=== PATIENT | female | born 1990 | race Caucasian/White ===

== ENCOUNTER → 2017-02-01 | Outpatient (CLI) | payer OTHER ==
--- NOTE | 2017-02-01 15:53 | CR ---
EXAMINATION: Two-view chest (PA and Lateral views). HISTORY: Cough. FINDINGS: The trachea is midline. The cardiomediastinal silhouette is within normal limits. No pulmonary infil trates, effusions or pneumothorax. Osseous structures appear unremarkable. IMPRESSION: No acute cardiopulmonary process.
== END ==
LOC: MW.CHFP 15:07
PROVIDERS: ATTEND Family Medicine
DX: R05 Cough (principal)
CPT/HCPCS: 36415; 71020; 71020-26; 85027

== ENCOUNTER 2018-03-18 11:48 | Emergency (ER) | payer OTHER ==
--- NOTE | 2018-03-18 12:08 | EDM.PDOC ---
ED HPI GENERAL MEDICAL PROBLEM - General Chief Complaint: Abdominal Pain Stated Complaint: ABDOMINAL PAIN Time Seen by Provider: 03/18/18 12:00 - History of Present Illness INITIAL COMMENTS - FREE TEXT/NARRATIVE: HISTORY AND PHYSICAL: History of present illness: The patient is a 27-year-old female who is scheduled for same-day surgery tomorrow for colonoscopy and presents with abdominal pain that started after she started her bowel prep. The patient took the dose of Dulcolax and started having severe abdominal cramping and had a bowel movement in the waiting room and is now significantly better. She has not started the MiraLAX and Gatorade solution. She had one episode of vomiting which she feels was secondary to the pain. She currently is much improved per her significant other but they're concerned about continuing that. She has no fevers chills chest pain or shortness of breath and denies . Review of systems: As per history of present illness and below otherwise all systems reviewed and negative. Past medical history: As per history of present illness and as reviewed below otherwise noncontributory. Surgical history: As per history of present illness and as reviewed below otherwise noncontributory. Social history: No reported history of drug or alcohol abuse. Family history: As per history of present illness and as reviewed below otherwise noncontributory. Physical exam: General: Well-developed well-nourished overweight female who is nontoxic and vital signs were noted by me HEENT: Atraumatic, normocephalic, negative for conjunctival pallor or scleral icterus, mucous membranes moist, throat clear, neck supple, nontender, trachea midline. Lungs: Clear to auscultation, breath sounds equal bilaterally, chest nontender. Heart: S1S2, regular rate and rhythm no overt murmurs Abdomen: Soft, nondistended, nontender. Bowel sounds are normoactive . Pelvis: Stable nontender. Genitourinary: Deferred. Rectal: Deferred. Extremities: Atraumatic, negative for cords or calf pain. Neurovascular unremarkable. Neuro: Awake, alert, oriented. Cranial nerves II through XII unremarkable. Cerebellum unremarkable. Motor and sensory unremarkable throughout. Exam nonfocal. Diagnostics: [] Therapeutics: Case was discussed with Dr. Bacon so she was aware of today's events at 1220. She agrees with giving her some Zofran and to continue the bowel prep. Patient was made aware of this conversation. Impression: Abdominal pain and cramping with colonoscopy bowel prep Definitive disposition and diagnosis as appropriate pending reevaluation and review of above. Abdominal Pain Score (Numeric/FACES): 3 - Related Data Allergies Allergy/AdvReac Type Severity Reaction Status Date / Time cefixime [From Suprax] Allergy Hives Verified 03/18/18 12:14 ciprofloxacin Allergy Hallucinati Verified 03/18/18 12:14 ons Penicillins Allergy Hives Verified 03/18/18 12:14 Sulfa (Sulfonamide Allergy Hives Verified 03/18/18 12:14 Antibiotics) Home Meds: Home Meds Levonorgestrel-Ethin Estradiol [Aubra-28 Tablet] 1 tab PO DAILY 03/14/18 [ History] Past Medical History HEENT History: Reports: Other (See Below) Other HEENT History: wears glasses/contacts Gastrointestinal History: Reports: Chronic Constipation, Hemorrhoids Musculoskeletal History: Reports: Fracture Other Musculoskeletal History: hx fx ribs and finger Neurological History: Reports: Concussion Endocrine/Metabolic History: Reports: Obesity/BMI 30+ - Past Surgical History Head Surgeries/Procedures: Reports: None HEENT Surgical History: Reports: Myringotomy w Tube(s) GI Surgical History: Reports: Colonoscopy ED ROS GENERAL - Review of Systems Review Of Systems: ROS reveals no pertinent complaints other than HPI. ED EXAM, GENERAL - Physical Exam Exam: See Below (see dictation) Departure - Departure Time of Disposition: 12:22 Disposition: Home, Self-Care 01 Condition: Good Clinical Impression: Abdominal pain Qualifiers: Abdominal location: generalized Qualified Code(s): R10.84 - Generalized abdominal pain - Discharge Information Referrals: Jolene Barraza MD [Primary Care Provider] - Forms: ED Department Discharge Additional Instructions: The following information is given to patients seen in the emergency department who are being discharged to home. This information is to outline your options for follow-up care. We provide all patients seen in our emergency department with a follow-up referral. The need for follow-up, as well as the timing and circumstances, are variable depending upon the specifics of your emergency department visit. If you don't have a primary care physician on staff, we will provide you with a referral. We always advise you to contact your personal physician following an emergency department visit to inform them of the circumstance of the visit and for follow-up with them and/or the need for any referrals to a consulting specialist. The emergency department will also refer you to a specialist when appropriate. This referral assures that you have the opportunity for followup care with a specialist. All of these measure are taken in an effort to provide you with optimal care, which includes your followup. Under all circumstances we always encourage you to contact your private physician who remains a resource for coordinating your care. When calling for followup care, please make the office aware that this follow-up is from your recent emergency room visit. If for any reason you are refused follow-up, please contact the [facility] emergency department at and ask to speak to the emergency department charge nurse. [facility] Professional Building [address] [place] [phone] Please continue with the bowel prep and perform as much of it as you can. Expect some cramping and use Zofran for any nausea or vomiting. Please keep your appointment tomorrow in same-day surgery. Push hydration and return to ER as needed and as discussed
[2018-03-18 12:28] VITALS: BP 142/94
== END 2018-03-18 12:34 | disposition home or self-care (01) ==
LOC: MW.ED 11:48
DX: R10.84 Generalized abdominal pain (principal); Z88.0 Allergy status to penicillin; Z88.2 Allergy status to sulfonamides
CPT/HCPCS: 99283

== ENCOUNTER 2018-03-19 11:04 | Day surgery (SDC) | payer OTHER ==
[~2018-03-19 11:04] MED LIST: Lactated Ringers 1,000 ML IV SCH; Sodium Chloride 0.9% 10 ML Syringe FLUSH PRN; Sodium Chloride 0.9% 2.5 ML Syringe FLUSH PRN
[2018-03-19] MEDS ORDERED: fentaNYL 100 MCG/2 ML SDV ONE (11:36)
[2018-03-19] MEDS ORDERED: Midazolam 1 MG/ML 2 ML SDV ONE (11:36)
[2018-03-19] MEDS ORDERED: Propofol 200 MG/20 ML SDV ONE (11:36)
[2018-03-19] MEDS ORDERED: Lidocaine 2% 5 ML SDV ONE (11:36)
--- NOTE | 2018-03-19 11:37 | PCM.PREANE ---
Preanesthetic Assessment - Anesthesia/Transfusion/Family Hx Anesthesia History: Prior Anesthesia Without Reaction Family History of Anesthesia Reaction: No Transfusion History: No Prior Transfusion(s) Intubation History: Unknown - Review of Systems General: No Symptoms Pulmonary: No Symptoms Cardiovascular: No Symptoms Gastrointestinal: Abdominal Pain (rectal pain) Neurological: No Symptoms Other: Reports: None - Physical Assessment Height: 1.63 m Weight: 103.873 kg ASA Class: 2 Mental Status: Alert & Oriented x3 Airway Class: Mallampati = 2 Dentition: Reports: Normal Dentition (two bonded teeth upper front) Thyro-Mental Finger Breadths: 3 Mouth Opening Finger Breadths: 2 ROM/Head Extension: Full Lungs: Clear to Auscultation, Normal Respiratory Effort Cardiovascular: Regular Rate, Regular Rhythm - Allergies Allergies/Adverse Reactions: Allergies Allergy/AdvReac Type Severity Reaction Status Date / Time cefixime [From Suprax] Allergy Hives Verified 03/18/18 12:14 ciprofloxacin Allergy Hallucinati Verified 03/18/18 12:14 ons Penicillins Allergy Hives Verified 03/18/18 12:14 Sulfa (Sulfonamide Allergy Hives Verified 03/18/18 12:14 Antibiotics) - Blood Blood Available: No - Anesthesia Plan Pre-Op Medication Ordered: None - Acknowledgements Anesthesia Type Planned: MAC Pt an Appropriate Candidate for the Planned Anesthesia: Yes Alternatives and Risks of Anesthesia Discussed w Pt/Guardian: Yes Pt/Guardian Understands and Agrees with Anesthesia Plan: Yes PreAnesthesia Questionnaire HEENT History: Reports: Other (See Below) Other HEENT History: wears glasses/contacts Respiratory History: Reports: Other (See Below) (pneumonia in october/november this year) Gastrointestinal History: Reports: Chronic Constipation, Hemorrhoids Musculoskeletal History: Reports: Fracture Other Musculoskeletal History: hx fx ribs and finger Neurological History: Reports: Concussion, Other (See Below) (meningitis at 1o days of age, consequce in some hearing loss) Endocrine/Metabolic History: Reports: Obesity/BMI 30+ - Past Surgical History Head Surgeries/Procedures: Reports: None HEENT Surgical History: Reports: Myringotomy w Tube(s) GI Surgical History: Reports: Colonoscopy - SUBSTANCE USE Smoking Status *Q: Never Smoker Recreational Drug Use History: No - HOME MEDS Home Medications: Home Meds Levonorgestrel-Ethin Estradiol [Aubra-28 Tablet] 1 tab PO DAILY 03/14/18 [ History] - CURRENT (IN HOUSE) MEDS Current Meds: Current Medications Lactated Ringer's (Ringers, Lactated) 1,000 mls @ 125 mls/hr IV ASDIRECTED CORTNEY Sodium Chloride (Saline Flush) 10 ml FLUSH ASDIRECTED PRN PRN Reason: Keep Vein Open Sodium Chloride (Saline Flush) 2.5 ml FLUSH ASDIRECTED PRN PRN Reason: Keep Vein Open Sodium Chloride (Saline Flush) 10 ml FLUSH ASDIRECTED PRN PRN Reason: Keep Vein Open Sodium Chloride (Saline Flush) 2.5 ml FLUSH ASDIRECTED PRN PRN Reason: Keep Vein Open
--- NOTE | 2018-03-19 12:34 | PCM.POSTAN ---
POST ANESTHESIA ASSESSMENT - MENTAL STATUS Mental Status: Alert, Oriented - RESPIRATORY Respiratory Status: Respiratory Rate WNL, Airway Patent, O2 Saturation Stable - CARDIOVASCULAR CV Status: Pulse Rate WNL, Blood Pressure Stable - GASTROINTESTINAL GI Status: No Symptoms - POST OP HYDRATION Hydration Status: Adequate & Stable
--- NOTE | 2018-03-19 12:36 | PCM.OPNOTE ---
- General Post-Op/Procedure Note Date of Surgery/Procedure: 03/19/18 Operative Procedure(s): Diagnostic colonoscopy Findings: Large prolapsed left lateral internal hemorrhoid, diverticulosis, sigmoid colon and rectal polyp Pre Op Diagnosis: Irregular bowel habits Post-Op Diagnosis: Large prolapsed left lateral internal hemorrhoid, diverticulosis, sigmoid colon and rectal polyp [place]est[place] [facility] [place]geon: Tomeka Bacon Condition: Good Free Text/Narrative:: Intake & Output 03/18/18 03/19/18 03/19/18 22:59 06:59 14:59 Intake Total 900 Balance 900
[2018-03-19 12:56] VITALS: BP 142/84
--- NOTE | 2018-03-20 12:56 | OR ---
SURGEON: DULCE WILKERSON MD DATE OF PROCEDURE: 03/19/2018 PREOPERATIVE DIAGNOSES: 1. Diverticulosis. 2. Irregular bowel habits. 3. Grade 4 hemorrhoids. POSTOPERATIVE DIAGNOSES: 1. Grade 4 left lateral hemorrhoid. 2. Diverticulosis. 3. Rectal polyp. 4. Sigmoid colon polyp. PROCEDURE PERFORMED: Diagnostic colonoscopy. ANESTHESIA: MAC. INSTRUMENT USED: Olympus colonoscope. EXTENT OF EXAM: To the cecum. PREPARATION: Good. LIMITATIONS: None. INDICATION FOR EXAMINATION: The patient is a 27-year-old female who presented to my clinic with complaints of internal hemorrhoids and irregular bowel habits. She does have a family history of ulcerative colitis. On physical exam, she was noted to have a large prolapsed left lateral hemorrhoid. The patient and I discussed the need for a diagnostic colonoscopy prior to proceeding with a hemorrhoidectomy. I explained the procedure, expected perioperative course, and risks including bleeding, infection, or damage to surrounding structures including perforation. The patient verbalized understanding and wishes to proceed. PROCEDURE IN DETAIL: The patient was brought to the endoscopy suite and placed in the left lateral decubitus position. A time-out was completed verifying the patient's name, age, date of , allergies, and procedure to be performed. Monitored anesthesia care was induced and continuous oxygen was provided via nasal cannula throughout the procedure. After adequate sedation was achieved, a digital rectal exam was performed. This confirmed my finding of a grade 4 hemorrhoidal disease. A well - lubricated colonoscope was inserted in the rectum and advanced under direct visualization to the level of the cecum. The cecum was identified by both visual and anatomic landmarks. A photograph was taken of the cecal cap, but I was unable to retroflex the scope within the cecum due to looping of the scope more proximally. I was, however, able to visualize the terminal ileum very well. There was no evidence of inflammation or ulceration in this area. The scope was then fully withdrawn while examining the color, texture, anatomy, and integrity of the mucosa from the cecum to the anal canal. The patient was found to have mild diverticulosis within the sigmoid colon. I found 2 sessile polyps within the rectum and sigmoid colon. These were removed using a cold biopsy forceps. The scope was then brought into the rectum and retroflexed to allow visualization of the anal canal opening. This appeared normal other than the hemorrhoidal disease. The scope was straightened out and fully withdrawn. The cecum to anus time was 11 minutes. The patient tolerated the procedure well and was taken to PACU in stable condition. ENDOSCOPIC DIAGNOSES: 1. Grade 4 left lateral hemorrhoid. 2. Diverticulosis. 3. Rectal polyp. 4. Sigmoid colon polyp. RECOMMENDATIONS: I will proceed with her hemorrhoidectomy as scheduled. We will follow up with the patient after that. LUIS ARMANDO SCHWARTZ /[id number] MTDManuel
== END 2018-03-19 12:54 | disposition home or self-care (01) ==
LOC: MW.SDS 11:04
PROVIDERS: ATTEND Surgery
DX: K57.30 Diverticulosis of large intestine without perforation or abscess without bleeding (principal); R19.8 Other specified symptoms and signs involving the digestive system and abdomen; D12.5 Benign neoplasm of sigmoid colon; K62.1 Rectal polyp; K64.3 Fourth degree hemorrhoids; E66.9 Obesity, unspecified; Z68.39 Body mass index [BMI] 39.0-39.9, adult; H91.90 Unspecified hearing loss, unspecified ear; Z88.1 Allergy status to other antibiotic agents; Z88.0 Allergy status to penicillin; Z88.2 Allergy status to sulfonamides
CPT/HCPCS: 45380; 81025; J2250; J3010; J7120; J2704

== ENCOUNTER 2018-03-21 10:08 | Day surgery (SDC) | payer OTHER ==
[~2018-03-21 10:08] MED LIST changes: +Bupivacaine 0.5% 30 ML SDV ONE; +Lidocaine 2% Jelly 30 ML Tube ONE; +cefOXitin 2 GM in Premix Bag 1 BAG IV ONE
[2018-03-21] MEDS ORDERED: Clindamycin Phosphate in D5W 600 MG/50 ML Premix Bag IV ONE (10:09)
[2018-03-21] MEDS ORDERED: Propofol 200 MG/20 ML SDV ONE (11:04)
[2018-03-21] MEDS ORDERED: Rocuronium 10 MG/ML 10 ML Syringe ONE (11:05)
[2018-03-21] MEDS ORDERED: fentaNYL 250 MCG/5 ML SDV ONE (11:05)
[2018-03-21] MEDS ORDERED: Midazolam 1 MG/ML 2 ML SDV ONE (11:06)
[2018-03-21] MEDS ORDERED: Lidocaine 2% 5 ML SDV ONE (11:06)
--- NOTE | 2018-03-21 11:17 | PCM.PREANE ---
Preanesthetic Assessment - Procedure Proposed Procedure: hemorrhoidectomy - Anesthesia/Transfusion/Family Hx Anesthesia History: Prior Anesthesia Without Reaction Transfusion History: No Prior Transfusion(s) Intubation History: Unknown - Review of Systems General: Other (rectal pain; Vitamin D deficiency; hpercalcemia) Pulmonary: Cough, Other (recent pneumonia (12/02)) Cardiovascular: No Symptoms Gastrointestinal: Other (rectal pain) Neurological: No Symptoms Other: Reports: None - Physical Assessment NPO Status Date: 03/20/18 NPO Status Time: 23:00 O2 Sat by Pulse Oximetry: 95 Respiratory Rate: 16 Vital Signs: Last Vital Signs Temp 98.1 F 03/21/18 10:30 Pulse 92 03/21/18 10:30 Resp 16 03/21/18 10:30 BP 159/81 H 03/21/18 10:30 Pulse Ox 95 03/21/18 10:30 Height: 5 ft 4 in Weight: 229 lb ASA Class: 2 Mental Status: Alert & Oriented x3 Airway Class: Mallampati = 2 Dentition: Reports: Normal Dentition Thyro-Mental Finger Breadths: 3 Mouth Opening Finger Breadths: 3 ROM/Head Extension: Full Lungs: Clear to Auscultation, Normal Respiratory Effort Cardiovascular: Regular Rate, Regular Rhythm, No Murmurs Other: wears glasses - impaired vision without them - Lab Values: Laboratory Last Values Urine HCG, Qual NEGATIVE (NEGATIVE) 03/21/18 10:25 - Allergies Allergies/Adverse Reactions: Allergies Allergy/AdvReac Type Severity Reaction Status Date / Time cefixime [From Suprax] Allergy Hives Verified 03/18/18 12:14 ciprofloxacin Allergy Hallucinati Verified 03/18/18 12:14 ons Penicillins Allergy Hives Verified 03/18/18 12:14 Sulfa (Sulfonamide Allergy Hives Verified 03/18/18 12:14 Antibiotics) - Blood Blood Available: No Product(s) Available: None - Anesthesia Plan Pre-Op Medication Ordered: None - Acknowledgements Anesthesia Type Planned: General Anesthesia (OET if prone) Pt an Appropriate Candidate for the Planned Anesthesia: Yes Alternatives and Risks of Anesthesia Discussed w Pt/Guardian: Yes Pt/Guardian Understands and Agrees with Anesthesia Plan: Yes PreAnesthesia Questionnaire HEENT History: Reports: Other (See Below) Other HEENT History: wears glasses/contacts Respiratory History: Reports: Other (See Below) (pneumonia in november this year) Gastrointestinal History: Reports: Chronic Constipation, Hemorrhoids Musculoskeletal History: Reports: Fracture Other Musculoskeletal History: hx fx ribs and finger Neurological History: Reports: Concussion, Other (See Below) (meningitis at 1o days of age, consequce in some hearing loss) Endocrine/Metabolic History: Reports: Obesity/BMI 30+ - Past Surgical History Head Surgeries/Procedures: Reports: None HEENT Surgical History: Reports: Myringotomy w Tube(s) GI Surgical History: Reports: Colonoscopy - SUBSTANCE USE Smoking Status *Q: Never Smoker Days Per Week of Alcohol Use: 1 Recreational Drug Use History: No - HOME MEDS Home Medications: Home Meds Levonorgestrel-Ethin Estradiol [Aubra-28 Tablet] 1 tab PO DAILY 03/14/18 [ History] - CURRENT (IN HOUSE) MEDS Current Meds: Current Medications Lactated Ringer's (Ringers, Lactated) 1,000 mls @ 125 mls/hr IV ASDIRECTED CORTNEY Last Admin: 03/21/18 10:40 Dose: 125 mls/hr Sodium Chloride (Saline Flush) 10 ml FLUSH ASDIRECTED PRN PRN Reason: Keep Vein Open Sodium Chloride (Saline Flush) 2.5 ml FLUSH ASDIRECTED PRN PRN Reason: Keep Vein Open Discontinued Medications Bupivacaine HCl (Marcaine 0.5%) Confirm Administered Dose 30 ml .ROUTE .STK-MED ONE Stop: 03/21/18 07:18 Fentanyl (Sublimaze) Confirm Administered Dose 250 mcg .ROUTE .STK-MED ONE Stop: 03/21/18 11:06 Gelatin (Gelfoam Size 100) Confirm Administered Dose 1 each TOP .STK-MED ONE Stop: 03/21/18 07:19 Cefoxitin Sodium 2 gm/ Premix 50 mls @ 100 mls/hr IV ONETIME ONE Stop: 03/17/18 09:22 Lidocaine (Xylocaine-Mpf 2%) Confirm Administered Dose 5 ml .ROUTE .STK-MED ONE Stop: 03/21/18 11:07 Lidocaine HCl (Xylocaine 2% Jelly) Confirm Administered Dose 30 ml .ROUTE .STK- MED ONE Stop: 03/21/18 07:19 Midazolam HCl (Versed 1 Mg/Ml) Confirm Administered Dose 2 mg .ROUTE .STK-MED ONE Stop: 03/21/18 11:07 Propofol (Diprivan 20 Ml) Confirm Administered Dose 200 mg .ROUTE .STK-MED ONE Stop: 03/21/18 11:05 Rocuronium [place] (Zemuron) Confirm Administered Dose 100 mg .ROUTE .STK-MED ONE Stop: 03/21/18 11:06
[2018-03-21] MEDS ORDERED: Succinylcholine 200 MG/10 ML MDV ONE (12:48)
--- NOTE | 2018-03-21 13:44 | PCM.OPNOTE ---
- General Post-Op/Procedure Note Date of Surgery/Procedure: 03/21/18 Operative Procedure(s): Single column hemorrhoidectomy Findings: Large grade IV left lateral hemorrhoid Pre Op Diagnosis: Grade IV hemorrhoid Post-Op Diagnosis: same Anesthesia Technique: General ET Tube Primary Surgeon: Tomeka Bacon Fluid Replacement, Intraop: 1,000 EBL in mLs: 10 Condition: Good
--- NOTE | 2018-03-21 13:49 | PCM.POSTAN ---
POST ANESTHESIA ASSESSMENT - MENTAL STATUS Mental Status: Alert, Oriented - RESPIRATORY Respiratory Status: Respiratory Rate WNL, Airway Patent, O2 Saturation Stable - CARDIOVASCULAR CV Status: Pulse Rate WNL, Blood Pressure Stable - GASTROINTESTINAL GI Status: No Symptoms - PAIN Pain Score: 4 - POST OP HYDRATION Hydration Status: Adequate & Stable - OBSERVATIONS Free Text/Narrative:: Pt stable for discharge to phase II recovery. No nausea and pain control satisfactory at this time.
[2018-03-21] MEDS ORDERED: Acetaminophen/oxyCODONE 325-5 MG Tab PO PRN (14:08)
--- NOTE | 2018-03-21 14:30 | PCM48HPAN ---
Post Anesthesia Note - EVALUATION WITHIN 48HRS OF ANESTHETIC Vital Signs in Normal Range: Yes Patient Participated in Evaluation: Yes Respiratory Function Stable: Yes Airway Patent: Yes Cardiovascular Function Stable: Yes Hydration Status Stable: Yes Pain Control Satisfactory: Yes Nausea and Vomiting Control Satisfactory: Yes Mental Status Recovered: Yes Resp Rate: 19 - COMMENTS/OBSERVATIONS Free Text/Narrative:: Pt doing well postop. Nausea controlled and taking percocet for pain.
[2018-03-21 14:48] VITALS: BP 123/70
--- NOTE | 2018-03-21 16:25 | OR ---
SURGEON: DULCE WILKERSON MD DATE OF PROCEDURE: 03/21/2018 PREOPERATIVE DIAGNOSIS: Grade 4 hemorrhoid. POSTOPERATIVE DIAGNOSIS: Grade 4 hemorrhoid. PROCEDURE PERFORMED: Single-column hemorrhoidectomy. ANESTHESIA: General endotracheal anesthesia. FLUIDS: 1 L. ESTIMATED BLOOD LOSS: 10 mL. FINDINGS: A large left lateral internal hemorrhoid that was prolapsed out. No evidence of any other hemorrhoidal disease. COMPLICATIONS: None. INDICATIONS: The patient is a 27-year-old female, who presented to clinic with a large prolapsing left lateral internal hemorrhoid. She underwent a diagnostic colonoscopy, which confirmed this finding. The decision was made to perform an excision of this large prolapsing hemorrhoid. I explained the procedure, expected postoperative cares as well as the risks including bleeding, infection, or damage to surrounding structures resulting in changes incontinence. The patient verbalized understanding and wishes to proceed. PROCEDURE IN DETAIL: The patient was brought into the OR on the OR cart. A time-out was completed verifying the patient's name, age, date of , allergies, and procedure to be performed. General endotracheal anesthesia was induced. The patient was then placed on the operating room table in prone position. All bony services were appropriately padded and protected. The anoderm and buttocks were prepped and draped in usual standard fashion. A digital rectal exam was performed. This exam revealed a large prolapsing left lateral hemorrhoid. A bivalve speculum was then inserted into the anus. This confirmed the findings of my digital rectal exam and previous colonoscopy. The patient did not have any other hemorrhoidal columns that appeared to be enlarged or prolapsing. I grasped the hemorrhoid with Amy clamp and elevated it from the surrounding tissues. Pinpoint cautery was used to excise this large hemorrhoid from the anoderm into the anal canal in a art shaped fashion. Hemostasis was achieved with pinpoint cautery. A 2-0 chromic suture was then used to close the mucosa within the anal canal. A running locking stitch was carried from proximal to distal. Once I reached the anoderm, the stitch was transitioned into a simple running stitch. I then whip stitched the suture back onto itself and tied it to the previously placed knot in the proximal anal canal. Pressure was then held for approximately one minute. I reinspected my operative field and it was hemostatic. The speculum was removed. The anoderm was circumferentially anesthetized with 0.5% Marcaine plain and I performed a bilateral nerve block. Fluffs and mesh underwear were placed on the patient. The patient was then placed back on the OR cart in supine position and extubated. She tolerated the procedure well and was taken to PACU in stable condition. LUIS ARMANDO SCHWARTZ /[id number]
== END 2018-03-21 15:45 | disposition home or self-care (01) ==
LOC: MW.SDS 10:08
PROVIDERS: ATTEND Surgery
DX: K64.3 Fourth degree hemorrhoids (principal); E55.9 Vitamin D deficiency, unspecified; E66.9 Obesity, unspecified; Z68.39 Body mass index [BMI] 39.0-39.9, adult; Z79.899 Other long term (current) drug therapy; Z88.0 Allergy status to penicillin; Z88.1 Allergy status to other antibiotic agents; Z88.2 Allergy status to sulfonamides
CPT/HCPCS: 46255; 81025; A9270; J0330; J2250; J3010; J7120; J2704

== ENCOUNTER 2019-12-06 18:49 | Emergency (ER) | payer OTHER ==
--- NOTE | 2019-12-06 20:44 | CR ---
INDICATION: Cough. TECHNIQUE: AP portable chest x-ray. COMPARISON: Chest x-ray 02/01/2017. FINDINGS: New mild increased opacity in the left perihilar region could be related to inflammation and overlapping bronchovascular shadows but a small amount of infrahilar infiltrate is not entirely excluded. Lungs otherwise clear. Heart size upper limits of normal. Chest otherwise negative. Dictated by Trey Gage MD @ Dec 06 2019 8:41PM Signed by Dr. Trey Gage @ Dec 06 2019 8:43PM
[2019-12-06] MEDS ORDERED: Sodium Chloride 0.9% 1,000 ML IV SCH (21:30)
[2019-12-06 22:07] LABS: BLOOD UREA NITROGEN,BUN 10 mg/dL (7.0-18.0); CARBON DIOXIDE,CO2 26.2 mmol/L (21.0-32.0); CHLORIDE,CL 103 mmol/L (98-107); GLUCOSE RANDOM 112 mg/dL (74-106); POTASSIUM,K 3.8 mmol/L (3.5-5.1); SODIUM,NA 139 mmol/L (136-145)
[2019-12-06] MEDS ORDERED: Azithromycin 250 MG Tab PO STA (23:28)
[2019-12-06] MEDS ORDERED: Albuterol 8 GM Inhaler INH ONE (23:33)
--- NOTE | 2019-12-07 00:27 | EDM.PDOC ---
ED HPI GENERAL MEDICAL PROBLEM - General Chief Complaint: Respiratory Problem Stated Complaint: COUGH Time Seen by Provider: 12/07/19 00:22 Source of Information: Reports: Patient History Limitations: Reports: No Limitations - History of Present Illness INITIAL COMMENTS - FREE TEXT/NARRATIVE: This 29-year-old female presents the emergency room with cough shortness of breath. 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 Treatments headache Pain Score (Numeric/FACES): 2 - Related Data Allergies Allergy/AdvReac Type Severity Reaction Status Date / Time cefixime [From Suprax] Allergy Hives Verified 12/06/19 19:35 ciprofloxacin Allergy Hallucinati Verified 12/06/19 19:35 ons Penicillins Allergy Hives Verified 12/06/19 19:35 Sulfa (Sulfonamide Allergy Hives Verified 12/06/19 19:35 Antibiotics) Home Meds: Home Meds Levonorgestrel-Ethin Estradiol [Aubra-28 Tablet] 1 tab PO DAILY 03/14/18 [ History] Docusate Sodium 100 mg PO DAILY 12/06/19 [History] Past Medical History HEENT History: Reports: Other (See Below) Other HEENT History: wears glasses/contacts Respiratory History: Reports: Other (See Below) Gastrointestinal History: Reports: Chronic Constipation, Hemorrhoids Musculoskeletal History: Reports: Fracture Other Musculoskeletal History: hx fx ribs and finger Neurological History: Reports: Concussion, Other (See Below) Endocrine/Metabolic History: Reports: Obesity/BMI 30+ - Infectious Disease History Infectious Disease History: Reports: Chicken Pox - Past Surgical History Head Surgeries/Procedures: Reports: None HEENT Surgical History: Reports: Adenoidectomy, Myringotomy w Tube(s), Tonsillectomy GI Surgical History: Reports: Colonoscopy Social & Family History - Family History Family Medical History: Noncontributory - Tobacco Use Smoking Status *Q: Never Smoker - Caffeine Use Caffeine Use: Reports: Coffee - Recreational Drug Use Recreational Drug Use: No ED ROS GENERAL - Review of Systems Review Of Systems: See Below Constitutional: Reports: No Symptoms HEENT: Reports: No Symptoms Respiratory: Reports: No Symptoms, Shortness of Breath Cardiovascular: Reports: No Symptoms Endocrine: Reports: No Symptoms GI/Abdominal: Reports: No Symptoms : Reports: No Symptoms Musculoskeletal: Reports: No Symptoms Skin: Reports: No Symptoms Neurological: Reports: No Symptoms Psychiatric: Reports: No Symptoms Hematologic/Lymphatic: Reports: No Symptoms Immunologic: Reports: No Symptoms ED EXAM, GENERAL - Physical Exam Exam: See Below Exam Limited By: No Limitations General Appearance: Alert, WD/WN, No Apparent Distress Eye Exam: Bilateral Eye: Normal Fundi, Normal Inspection Ears: Normal External Exam, Normal Canal, Hearing Grossly Normal, Normal TMs Ear Exam: Bilateral Ear: Auricle Normal, Canal Normal, TM normal Nose: Normal Inspection, Normal Mucosa Throat/Mouth: Normal Inspection, Normal Lips, Normal Oropharynx, Normal Voice Head: Atraumatic, Normocephalic Neck: Normal Inspection Respiratory/Chest: No Respiratory Distress, Lungs Clear, Normal Breath Sounds, No Accessory Muscle Use Cardiovascular: Normal Peripheral Pulses, Regular Rate, Rhythm, No JVD Back Exam: Normal Inspection, Full Range of Motion Extremities: Normal Inspection, Normal Range of Motion Neurological: Alert, Oriented, CN II-XII Intact, Normal Cognition, Normal Reflexes Psychiatric: Normal Affect, Normal Mood Skin Exam: Warm, Dry, Intact Lymphatic: No Adenopathy Course - Vital Signs Text/Narrative:: This is a 29-year-old female who presents the emergency room with cough. Patient found to have pneumonia. Patient is awaiting final test for coronavirus. Patient is negative for influenza. Patient has been given Zithromax in the emergency room and will be discharged emergency room. Patient instructed to self quarantine for the next 3 days awaiting results. Last Recorded V/S: Last Vital Signs Temp 98.7 F 12/06/19 23:15 Pulse 107 H 12/06/19 23:58 Resp 18 12/06/19 23:58 BP 168/104 H 12/06/19 23:58 Pulse Ox 95 12/06/19 23:58 - Orders/Labs/Meds Orders: Active Orders 24 hr Category Date Time Status RT Post Treatment Assessment [RC] Click to Edit Care 12/06/19 23:35 Ordered RT Pre-Treatment Assessment [RC] Click to Edit Care 12/06/19 23:35 Ordered CORONAVIRUS (COVID-19) PCR [MREF] Stat Lab 12/06/19 20:26 Received Sodium Chloride 0.9% [Normal Saline] 1,000 ml Med 12/06/19 21:30 Active IV ASDIRECTED Isolation [COMM] Routine Oth 12/06/19 20:11 Active Medication Orders Sodium Chloride (Normal Saline) 1,000 mls @ 999 mls/hr IV ASDIRECTED CORTNEY Last Admin: 12/06/19 21:35 Dose: 999 mls/hr Labs: Laboratory Tests 12/06/19 12/06/19 Range/Units 21:33 21:33 WBC 10.81 (4.0-11.0) K/uL RBC 5.17 (4.30-5.90) M/uL Hgb 14.0 (12.0-16.0) g/dL Hct 44.0 (36.0-46.0) % MCV 85.1 (80.0-98.0) fL MCH 27.1 (27.0-32.0) pg MCHC 31.8 (31.0-37.0) g/dL RDW Std Deviation 42.3 (28.0-62.0) fl RDW Coeff of Federico 14 (11.0-15.0) % Plt Count 370 (150-400) K/uL MPV 9.10 (7.40-12.00) fL Neut % (Auto) 71.8 (48.0-80.0) % Lymph % (Auto) 18.2 (16.0-40.0) % Parke % (Auto) 8.6 (0.0-15.0) % Eos % (Auto) 1.0 (0.0-7.0) % Baso % (Auto) 0.4 (0.0-1.5) % Neut # (Auto) 7.8 H (1.4-5.7) K/uL Lymph # (Auto) 2.0 (0.6-2.4) K/uL Parke # (Auto) 0.9 H (0.0-0.8) K/uL Eos # (Auto) 0.1 (0.0-0.7) K/uL Baso # (Auto) 0.0 (0.0-0.1) K/uL Nucleated RBC % 0.0 /100WBC Nucleated RBCs # 0 K/uL Sodium 139 (136-145) mmol/L Potassium 3.8 (3.5-5.1) mmol/L Chloride 103 (98-107) mmol/L Carbon Dioxide 26.2 (21.0-32.0) mmol/L BUN 10 (7.0-18.0) mg/dL Creatinine 0.8 (0.6-1.0) mg/dL Est Cr Clr Drug Dosing 89.60 mL/min Estimated GFR (MDRD) > 60.0 ml/min Glucose 112 H (74-106) mg/dL Calcium 8.8 (8.5-10.1) mg/dL Total Bilirubin 0.2 (0.2-1.0) mg/dL AST 24 (15-37) IU/L ALT 25 (14-63) IU/L Alkaline Phosphatase 80 (46-116) U/L Total Protein 8.3 H (6.4-8.2) g/dL Albumin 3.5 (3.4-5.0) g/dL Globulin 4.8 H (2.6-4.0) g/dL Albumin/Globulin Ratio 0.7 L (0.9-1.6) Meds: Medications Generic Name Dose Route Start Last Admin Trade Name Freq PRN Reason Stop Dose Admin Sodium Chloride 1,000 mls @ 999 mls/hr 12/06/19 21:30 12/06/19 21:35 Normal Saline IV 999 mls/hr ASDIRECTED CORTNEY Administration Discontinued Medications Generic Name Dose Route Start Last Admin Trade Name Freq PRN Reason Stop Dose Admin Albuterol 2.5 gm 12/06/19 23:33 12/06/19 23:57 Ventolin Hfa INH 12/06/19 23:34 2 puff ONETIME ONE Administration Azithromycin 500 mg 12/06/19 23:28 12/06/19 23:52 Zithromax PO 12/06/19 23:29 500 mg NOW STA Administration Departure - Departure Time of Disposition: 00:28 Disposition: Home, Self-Care 01 Condition: Good Clinical Impression: Pneumonia - Discharge Information Instructions: Community-Acquired Pneumonia, Adult, [id number] Referrals: Jolene Barraza MD [Primary Care Provider] - Sepsis Event Note - Evaluation Sepsis Screening Result: Possible Sepsis Risk - Focused Exam Vital Signs: Vital Signs Temp Pulse Resp BP Pulse Ox 12/06/19 23:58 107 H 18 168/104 H 95 12/06/19 23:15 98.7 F 103 H 18 166/98 H 95 12/06/19 21:41 122 H 19 148/89 H 95 12/06/19 21:12 99 F 124 H 18 164/93 H 94 L 12/06/19 19:37 99.1 F 116 H 18 167/96 H 94 L Date Exam was Performed: 12/07/19 Time Exam was Performed: 00:22 - My Orders Last 24 Hours: My Active Orders 12/06/19 20:11 Isolation [COMM] Routine 12/06/19 20:26 CORONAVIRUS (COVID-19) PCR [MREF] Stat 12/06/19 21:30 Sodium Chloride 0.9% [Normal Saline] 1,000 ml IV ASDIRECTED 12/06/19 23:35 RT Post Treatment Assessment [RC] Click to Edit RT Pre-Treatment Assessment [RC] Click to Edit - Assessment/Plan Last 24 Hours: My Active Orders 12/06/19 20:11 Isolation [COMM] Routine 12/06/19 20:26 CORONAVIRUS (COVID-19) PCR [MREF] Stat 12/06/19 21:30 Sodium Chloride 0.9% [Normal Saline] 1,000 ml IV ASDIRECTED 12/06/19 23:35 RT Post Treatment Assessment [RC] Click to Edit RT Pre-Treatment Assessment [RC] Click to Edit
[2019-12-07 03:59] VITALS: BP 159/99; PULSE 112
== END 2019-12-07 00:45 | disposition home or self-care (01) ==
LOC: MW.ED 18:49
DX: J18.9 Pneumonia, unspecified organism (principal); Z88.1 Allergy status to other antibiotic agents; Z88.2 Allergy status to sulfonamides; Z88.0 Allergy status to penicillin; Z20.828 Contact with and (suspected) exposure to other viral communicable diseases
CPT/HCPCS: 36415; 71045; 80053; 85025; 87635; 87804; 96360; 99285; A9270; J7030; 99283; U0001; U0002

== ENCOUNTER 2020-02-11 22:59 | Emergency (ER) | payer OTHER ==
[2020-02-11] MEDS ORDERED: Cephalexin 500 MG Cap PO ONE (23:21)
--- NOTE | 2020-02-11 23:30 | EDM.PDOC ---
ED HPI GENERAL MEDICAL PROBLEM - General Chief Complaint: Genitourinary Problem Stated Complaint: UTI Time Seen by Provider: 02/11/20 23:22 Source of Information: Reports: Patient History Limitations: Reports: No Limitations - History of Present Illness INITIAL COMMENTS - FREE TEXT/NARRATIVE: This 29-year-old female presents the emergency room with a chief complaint of dysuria and hematuria. Patient states that she knows she has a urinary tract infection and wants medication for treatment Duration: Day(s):, Getting Worse Location: Reports: Abdomen urinary Pain Score (Numeric/FACES): 7 - Related Data Allergies Allergy/AdvReac Type Severity Reaction Status Date / Time cefixime [From Suprax] Allergy Hives Verified 02/11/20 23:12 ciprofloxacin Allergy Hallucinati Verified 02/11/20 23:12 ons Penicillins Allergy Hives Verified 02/11/20 23:12 Sulfa (Sulfonamide Allergy Hives Verified 02/11/20 23:12 Antibiotics) Home Meds: Home Meds Levonorgestrel/Ethin.estradiol [Aubra-28 Tablet] 1 tab PO DAILY 03/14/18 [ History] Docusate Sodium 100 mg PO DAILY 12/06/19 [History] Azithromycin 250 mg PO ONETIME 4 Days #5 tablet 12/07/19 [Rx] Past Medical History HEENT History: Reports: Other (See Below) Other HEENT History: wears glasses/contacts Cardiovascular History: Reports: None Respiratory History: Reports: Other (See Below) Gastrointestinal History: Reports: Chronic Constipation, Hemorrhoids Musculoskeletal History: Reports: Fracture Other Musculoskeletal History: hx fx ribs and finger Neurological History: Reports: Concussion, Other (See Below) Psychiatric History: Reports: None Endocrine/Metabolic History: Reports: Obesity/BMI 30+ Hematologic History: Reports: None Immunologic History: Reports: None Dermatologic History: Reports: None - Infectious Disease History Infectious Disease History: Reports: Chicken Pox - Past Surgical History Head Surgeries/Procedures: Reports: None HEENT Surgical History: Reports: Adenoidectomy, Myringotomy w Tube(s), Tonsillectomy GI Surgical History: Reports: Colonoscopy Social & Family History - Family History Family Medical History: Noncontributory - Tobacco Use Smoking Status *Q: Never Smoker - Caffeine Use Caffeine Use: Reports: Coffee - Recreational Drug Use Recreational Drug Use: No ED ROS GENERAL - Review of Systems Review Of Systems: See Below Constitutional: Reports: No Symptoms HEENT: Reports: No Symptoms Respiratory: Reports: No Symptoms Cardiovascular: Reports: No Symptoms Endocrine: Reports: No Symptoms GI/Abdominal: Reports: No Symptoms : Reports: Dysuria, Hematuria Musculoskeletal: Reports: No Symptoms Skin: Reports: No Symptoms Neurological: Reports: No Symptoms Psychiatric: Reports: No Symptoms Hematologic/Lymphatic: Reports: No Symptoms Immunologic: Reports: No Symptoms ED EXAM, RENAL/ - Physical Exam Exam: See Below Exam Limited By: No Limitations General Appearance: Alert, WD/WN, No Apparent Distress Eye Exam: Bilateral Eye: Normal Fundi, Normal Inspection Ears: Normal External Exam, Normal Canal, Hearing Grossly Normal, Normal TMs Nose: Normal Inspection, Normal Mucosa, No Blood Throat/Mouth: Normal Inspection, Normal Lips, Normal Teeth, Normal Gums, Normal Oropharynx, Normal Voice, No Airway Compromise Head: Atraumatic Neck: Normal Inspection, Supple, Non-Tender, Full Range of Motion Cardiovascular: Normal Peripheral Pulses, Regular Rate, Rhythm, No Edema, No Gallop, No JVD, No Murmur, No Rub GI/Abdominal: Normal Bowel Sounds, Soft, Non-Tender, No Organomegaly, No Distention, No Abnormal Bruit, No Mass (Female) Exam: Deferred Rectal (Female) Exam: Deferred Back Exam: Normal Inspection, Full Range of Motion, NT Extremities: Normal Inspection, Normal Range of Motion, Non-Tender, Normal Capillary Refill, No Pedal Edema Psychiatric: Normal Affect, Normal Mood Skin Exam: Warm, Dry, Intact, Normal Color, No Rash Lymphatic: No Adenopathy Course - Vital Signs Last Recorded V/S: Last Vital Signs Temp 97.1 F 02/11/20 23:12 Pulse 98 02/11/20 23:12 Resp 20 02/11/20 23:12 BP 168/107 H 02/11/20 23:12 Pulse Ox 98 02/11/20 23:12 - Orders/Labs/Meds Orders: Active Orders 24 hr Category Date Time Status CULTURE URINE [RM] Stat Lab 02/11/20 23:10 Received Labs: Laboratory Tests 02/11/20 02/11/20 Range/Units 23:10 23:10 Urine Color DARK YELLOW Urine Appearance CLEAR Urine pH 5.0 (5.0-8.0) Ur Specific Mathias 1.025 (1.001-1.035) Urine Protein >=300 H (NEGATIVE) mg/dL Urine Glucose (UA) 100 H (NEGATIVE) mg/dL Urine Ketones TRACE H (NEGATIVE) mg/dL Urine Occult Blood SMALL H (NEGATIVE) Urine Nitrite POSITIVE H (NEGATIVE) Urine Bilirubin SMALL H (NEGATIVE) Urine Ictotest NEGATIVE Urine Urobilinogen 4.0 H (<2.0) EU/dL Ur Leukocyte Esterase MODERATE H (NEGATIVE) Urine RBC 2-3 (0-2/HPF) Urine WBC 8-10 (0-5/HPF) Ur Epithelial Cells OCCASIONAL (NONE-FEW) Urine Bacteria RARE (NEGATIVE) Urine HCG, Qual NEGATIVE (NEGATIVE) Meds: Medications Discontinued Medications Generic Name Dose Route Start Last Admin Trade Name Freq PRN Reason Stop Dose Admin Cephalexin 500 mg 02/11/20 23:21 02/11/20 23:31 Keflex PO 02/11/20 23:22 500 mg ONETIME ONE Administration Departure - Departure Time of Disposition: 00:28 Disposition: Home, Self-Care 01 Condition: Good Clinical Impression: UTI, Urinary tract infectious disease - Discharge Information Instructions: Urinary Tract Infection, Adult Referrals: PCP,None [Primary Care Provider] - Forms: ED Department Discharge Additional Instructions: #1. Take your medication as prescribed. 2. Return for any problems Sepsis Event Note - Evaluation Sepsis Screening Result: No Definite Risk - Focused Exam Vital Signs: Vital Signs Temp Pulse Resp BP Pulse Ox 02/11/20 23:12 97.1 F 98 20 168/107 H 98 Date Exam was Performed: 02/12/20 Time Exam was Performed: 00:28 - My Orders Last 24 Hours: My Active Orders 02/11/20 23:10 CULTURE URINE [RM] Stat - Assessment/Plan Last 24 Hours: My Active Orders 02/11/20 23:10 CULTURE URINE [RM] Stat
--- NOTE | 2020-02-12 01:18 | CR ---
INDICATION: Decreased oxygen saturation. TECHNIQUE: Chest 1 views COMPARISON: Chest x-ray 12/06/2019 FINDINGS: Cardiovascular and mediastinum: Heart size and vasculature are normal in caliber and appearance. Lungs and pleural spaces: Lungs are clear. No sign of infiltrate or mass. No sign of pleural effusion. No pneumothorax. Bones and soft tissues: No significant findings. IMPRESSION: No acute findings and no significant changes from the prior exam. Dictated by Rodolfo Li MD @ Feb 12 2020 1:16AM Signed by Dr. Rodolfo Li @ Feb 12 2020 1:16AM
[2020-02-12 02:11] VITALS: BP 151/87; PULSE 96
== END 2020-02-12 02:11 | disposition home or self-care (01) ==
LOC: MW.ED 22:59
DX: N39.0 Urinary tract infection, site not specified (principal); E66.9 Obesity, unspecified; Z88.2 Allergy status to sulfonamides; Z79.899 Other long term (current) drug therapy; Z88.0 Allergy status to penicillin; Z88.1 Allergy status to other antibiotic agents; Z68.39 Body mass index [BMI] 39.0-39.9, adult
CPT/HCPCS: 71045; 81001; 81025; 87086; 87088; 87186; 99283; A9270; 99282

== ENCOUNTER 2022-06-24 05:21 | Emergency (ER) | payer OTHER ==
[2022-06-24] MEDS ORDERED: Iopamidol 755 Mg/ML 100 ML Bottle IV ONE (05:22)
[2022-06-24] MEDS ORDERED: Metoclopramide Oral Soln 10 MG/10 ML UD Cup PO ONE (06:00)
[2022-06-24] MEDS ORDERED: Lidocaine 2% Viscous Solution 15 ML UD PO ONE (06:00)
[2022-06-24] MEDS ORDERED: Aluminum Hydroxide/Magnesium Hydroxide/Simethicone XS Susp 30 ML Cup PO ONE (06:00)
[2022-06-24] MEDS ORDERED: Famotidine 20 MG/2 ML SDV IVPUSH ONE (06:03)
[2022-06-24] MEDS ORDERED: Morphine 4 MG/ML Syringe IVPUSH ONE (06:03)
[2022-06-24] MEDS ORDERED: Ondansetron 4 MG/2 ML SDV IVPUSH ONE (06:52)
== END 2022-06-24 08:20 ==
LOC: MW.ED 05:21
DX: R07.89 Other chest pain (principal)
CPT/HCPCS: 71045; 74177; 96374; 96375; 99285; A9270; J2270; J2405; J3490; Q9967